=== PATIENT | female | born 1965 | race African-American/Black ===

== ENCOUNTER 2018-02-17 18:35 | Inpatient (IN) | payer OTHER ==
[~2018-02-17] VITALS: Ht 160 cm; Wt 133.8 kg
--- NOTE | 2018-02-17 18:47 | ER Report ---
History and Physical Time Seen By MD: 18:47 HPI/ROS CHIEF COMPLAINT: chills, trouble urinating HISTORY OF PRESENT ILLNESS: This is a 53 year old female. She has been traveling for a few weeks, just returned home. Has chills, nausea, dark urine and pain in bilateral flanks. Very shaky. Has diabetes and blood sugars are running high even though she is not eating much. Has subjective fevers with chills, severe shaking chills at times. Has no chest pain. Always a little short of breath with her asthma, but feels a little more short of breath. No increase in wheezing. Some lower abdominal pain. Normal bowel movement today. Generalized weakness. Allergies: Coded Allergies: Opioids - Morphine Analogues (Verified Allergy, Mild, TACHYCARDIA, 02/17/18) NSAIDS (Non-Steroidal Anti-Inflamma (Verified Allergy, Unknown, TACHYCARDIA, 02/17/18) Sulfa (Sulfonamide Antibiotics) (Verified Allergy, Unknown, 02/17/18) aspirin (Verified Allergy, Unknown, TACHYCARDIA, 02/17/18) egg (Verified Allergy, Unknown, 02/17/18) Home Meds Reported Medications Insulin Glargine (LANTUS) 100 Unit/Ml Soln, 57 UNIT SUBQ, ML 02/17/18 Albuterol Sulfate (VENTOLIN HFA) 18 Gm Inh, 1-2 PUFF INH 3-4XD, INH 02/17/18 Levothyroxine Sodium (LEVOTHYROXINE SODIUM) 100 Mcg Tablet, 137 MCG PO QDAY, TAB 02/17/18 Fluticasone/Salmeterol (ADVAIR 500-50 DISKUS) 1 Each Disk.w.dev, 1 EACH IH 02/17/18 Sertraline Hcl (ZOLOFT) 100 Mg Tablet, 150 MG PO QDAY, TAB 02/17/18 Omeprazole (OMEPRAZOLE) 40 Mg Capsule.dr, 40 MG PO BID, CAP 02/17/18 Reviewed Nurses Notes: Yes Constitutional Vital Sign - Last 24 Hours 02/17/18 02/17/18 02/17/18 02/17/18 18:50 18:50 19:00 19:05 Temp 97.7 Pulse 95 89 Resp 18 B/P (MAP) 156/87 (110) 156/87 160/78 (105) Pulse Ox 85 93 O2 Delivery Room Air 1202/17/18 02/17/18 02/17/18 19:31 19:35 20:05 20:30 Pulse 90 97 B/P (MAP) 120/72 (88) 141/87 (105) Pulse Ox 95 94 02/17/18 02/17/18 02/17/18 02/17/18 20:30 21:18 21:30 22:00 Pulse 92 91 B/P (MAP) 141/87 (105) 134/59 (84) 117/83 (94) Pulse Ox 94 88 92 02/17/18 02/17/18 22:05 22:20 Pulse 84 92 Pulse Ox 94 90 Physical Exam General Appearance: The patient is alert. No acute distress. Eyes: Pupils are equal, round. No pallor, injection or icterus. ENT: Mucous membranes are moist. Normal oral mucosa. Posterior oropharynx is normal. TMs normal bilaterally, has some seborrheic dermatitis in canals. Neck: Supple and non tender. No lymphadenopathy. Respiratory: Lungs are a little diminished on the left. No wheezing noted. Oxygen improved with 2 liters nasal canula. Cardiovascular: Regular rate and rhythm. No murmurs, gallops or rubs. Normal capillary refill. Gastrointestinal: Abdomen is soft, lower area discomfort, but no focal ten derness. Nondistended. No rebound or guarding. Normal active bowel sounds. Has no costovertebral angle tenderness with percussion. Neurological: Alert and oriented x3. Skin: Warm and dry. No rashes. Musculoskeletal: Extremities are nontender. No tenderness in palpation of the back and spine. DIFFERENTIAL DIAGNOSIS: After history and physical exam, differential diagnosis was considered for fever/chills with dark urine and bilateral flank pain, most suspicious for urinary tract infection, but other infectious process possible. Medical Decision Making Data Points Result Diagram: 02/17/18191702/17/181917 Laboratory Hematology Test 02/17/18 19:18 02/17/18 20:58 02/17/18 21:09 02/17/18 22:05 Red Blood Count 4.77 M/uL (4.17-5.56) Mean Corpuscular Volume 86.0 fL (80.0-96.0) Mean Corpuscular Hemoglobin 28.9 pg (26.0-33.0) Mean Corpuscular Hemoglobin Concent 33.7 g/dL (32.0-36.0) Red Cell Distribution Width 14.4 % (11.5-14.5) Mean Platelet Volume 9.2 fL (7.2-11.1) Neutrophils (%) (Auto) 86.2 % (39.4-72.5) Lymphocytes (%) (Auto) 6.8 % (17.6-49.6) Monocytes (%) (Auto) 5.4 % (4.1-12.4) Eosinophils (%) (Auto) 0.1 % (0.4-6.7) Basophils (%) (Auto) 1.5 % (0.3-1.4) Nucleated RBC Relative Count (auto) 0.2 /100WBC Neutrophils # (Auto) 7.7 K/uL (2.0-7.4) Lymphocytes # (Auto) 0.6 K/uL (1.3-3.6) Monocytes # (Auto) 0.5 K/uL (0.3-1.0) Eosinophils # (Auto) 0.0 K/uL (0.0-0.5) Basophils # (Auto) 0.1 K/uL (0.0-0.1) Nucleated RBC Absolute Count (auto) 0.01 K/uL Sodium Level 132 mmol/L (137-145) Potassium Level 4.1 mmol/L (3.5-5.0) Chloride Level 94 mmol/L (98-107) Carbon Dioxide Level 27 mmol/L (22-31) Blood Urea Nitrogen 7 mg/dl (7-18) Creatinine 1.00 mg/dl (0.52-1.04) Glomerular Filtration Rate Calc 58.2 Random Glucose 293 mg/dl (75-110) Calcium Level 9.1 mg/dl (8.4-10.2) Total Bilirubin 1.4 mg/dl (0.2-1.3) Aspartate Amino Transf (AST/SGOT) 58 U/L (0-35) Alanine Aminotransferase (ALT/SGPT) 56 U/L (0-56) Alkaline Phosphatase 114 U/L (0-126) Total Protein 7.9 g/dl (6.3-8.2) Albumin 3.8 g/dl (3.5-5.0) Amylase Level 48 U/L (0-110) Lipase 47 U/L (23-300) Lactate 2.8 mmol/L (0.7-2.1) Urine Color Yellow Urine Clarity Slightly-cloudy Urine pH 5.0 pH (4.8-9.5) Urine Specific [place] 1.017 Urine Protein 500 mg/dL (NEGATIVE) Urine Glucose (UA) 50 mg/dL (NEGATIVE) Urine Ketones 20 mg/dL (NEGATIVE) Urine Blood Moderate (NEGATIVE) Urine Nitrite Negative (NEGATIVE) Urine Bilirubin Negative (NEGATIVE) Urine Urobilinogen 2.0 mg/dL (0.2-1.9) Urine Leukocyte Esterase Negative (NEGATIVE) Urine RBC 1 /HPF (0-2/HPF) Urine WBC 6 /HPF (0-5/HPF) Urine Squamous Epithelial Cells Many /LPF (</=FEW) Urine Bacteria Many /HPF (NONE-FEW) Urine Mucus Few /HPF (NONE-FEW) Influenza Virus Type A (PCR) Negative (NEGATIVE) Influenza Virus Type B (PCR) Negative (NEGATIVE) Chemistry Test 02/17/18 19:18 02/17/18 20:58 02/17/18 21:09 02/17/18 22:05 White Blood Count 9.0 k/uL (4.5-11.0) Red Blood Count 4.77 M/uL (4.17-5.56) Hemoglobin 13.8 g/dL (12.0-16.0) Hematocrit 41.0 % (34.0-47.0) Mean Corpuscular Volume 86.0 fL (80.0-96.0) Mean Corpuscular Hemoglobin 28.9 pg (26.0-33.0) Mean Corpuscular Hemoglobin Concent 33.7 g/dL (32.0-36.0) Red Cell Distribution Width 14.4 % (11.5-14.5) Platelet Count 191 K/uL (150-450) Mean Platelet Volume 9.2 fL (7.2-11.1) Neutrophils (%) (Auto) 86.2 % (39.4-72.5) Lymphocytes (%) (Auto) 6.8 % (17.6-49.6) Monocytes (%) (Auto) 5.4 % (4.1-12.4) Eosinophils (%) (Auto) 0.1 % (0.4-6.7) Basophils (%) (Auto) 1.5 % (0.3-1.4) Nucleated RBC Relative Count (auto) 0.2 /100WBC Neutrophils # (Auto) 7.7 K/uL (2.0-7.4) Lymphocytes # (Auto) 0.6 K/uL (1.3-3.6) Monocytes # (Auto) 0.5 K/uL (0.3-1.0) Eosinophils # (Auto) 0.0 K/uL (0.0-0.5) Basophils # (Auto) 0.1 K/uL (0.0-0.1) Nucleated RBC Absolute Count (auto) 0.01 K/uL Glomerular Filtration Rate Calc 58.2 Calcium Level 9.1 mg/dl (8.4-10.2) Total Bilirubin 1.4 mg/dl (0.2-1.3) Aspartate Amino Transf (AST/SGOT) 58 U/L (0-35) Alanine Aminotransferase (ALT/SGPT) 56 U/L (0-56) Alkaline Phosphatase 114 U/L (0-126) Total Protein 7.9 g/dl (6.3-8.2) Albumin 3.8 g/dl (3.5-5.0) Amylase Level 48 U/L (0-110) Lipase 47 U/L (23-300) Lactate 2.8 mmol/L (0.7-2.1) Urine Color Yellow Urine Clarity Slightly-cloudy Urine pH 5.0 pH (4.8-9.5) Urine Specific [place] 1.017 Urine Protein 500 mg/dL (NEGATIVE) Urine Glucose (UA) 50 mg/dL (NEGATIVE) Urine Ketones 20 mg/dL (NEGATIVE) Urine Blood Moderate (NEGATIVE) Urine Nitrite Negative (NEGATIVE) Urine Bilirubin Negative (NEGATIVE) Urine Urobilinogen 2.0 mg/dL (0.2-1.9) Urine Leukocyte Esterase Negative (NEGATIVE) Urine RBC 1 /HPF (0-2/HPF) Urine WBC 6 /HPF (0-5/HPF) Urine Squamous Epithelial Cells Many /LPF (</=FEW) Urine Bacteria Many /HPF (NONE-FEW) Urine Mucus Few /HPF (NONE-FEW) Influenza Virus Type A (PCR) Negative (NEGATIVE) Influenza Virus Type B (PCR) Negative (NEGATIVE) Urinalysis Test 02/17/18 21:09 Urine Color Yellow Urine Clarity Slightly-cloudy Urine pH 5.0 pH (4.8-9.5) Urine Specific [place] 1.017 Urine Protein 500 mg/dL (NEGATIVE) Urine Glucose (UA) 50 mg/dL (NEGATIVE) Urine Ketones 20 mg/dL (NEGATIVE) Urine Blood Moderate (NEGATIVE) Urine Nitrite Negative (NEGATIVE) Urine Bilirubin Negative (NEGATIVE) Urine Urobilinogen 2.0 mg/dL (0.2-1.9) Urine Leukocyte Esterase Negative (NEGATIVE) Urine RBC 1 /HPF (0-2/HPF) Urine WBC 6 /HPF (0-5/HPF) Urine Squamous Epithelial Cells Many /LPF (</=FEW) Urine Bacteria Many /HPF (NONE-FEW) Urine Mucus Few /HPF (NONE-FEW) EKG/Imaging Imaging Examination: ACUTE ABDOMEN SERIES 3 VIEW Comparison: None. History: bilateral flank pain, lower abd, chills Findings: Left upper lung approximately 7 cm consolidative density. The right lung is clear. No pneumothorax or effusion. Cardiac and hilar contour size is within normal limits. No pneumoperitoneum. Bowel gas pattern is unremarkable. Small amount of stool in the colon. No suspicious soft tissue calcifications. Multifocal degenerative change throughout the osseous structures. IMPRESSION: 1. Left upper lung 7 cm consolidative density is most suggestive of a pneumonia although radiographic follow-up in 4-6 weeks to document resolution and exclude the presence of a mass is required. If there is a clinical suspicion for malignancy at this time, consider further characterization by chest CT with contrast. 2. Nonobstructive bowel gas pattern. No pneumoperitoneum. Report Dictated By: Sher Nino MD at 02/17/2018 8:20 PM ED Course/Re-evaluation Clinical Indication for ER IV: Hydration, IV Access ED Course Initial evaluation with concern for infectious process. Patient unable to give urine sample initially. Coughing with production of brownish sputum. Abdomen 3 view shows left upper lobe pneumonia. Blood cultures ordered and patient started on Ceftriaxone and Azithromycin. Discussed with Dr. Petersen who accepted the patient for admission. Decision to Disposition Date: Feb 17, 2018 Decision to Disposition Time: 21:00 Depart Departure Latest Vital Signs Vital Signs Date Time Temp Pulse Resp B/P (MAP) Pulse Ox O2 Delivery O2 Flow Rate FiO2 02/17/18 22:20 92 90 02/17/18 21:30 117/83 (94) 02/17/18 18:50 97.7 18 Room Air Impression: Primary Impression: Pneumonia Condition: Improved Disposition: Admitted from ER Referrals: SINDI ALCARAZ MD (PCP) Problem Qualifiers Primary Impression: Pneumonia Pneumonia type: due to unspecified organism Laterality: left Lung locat ion: upper lobe of lung Qualified Codes: J18.1 - Lobar pneumonia, unspecified organism LILY BENJAMIN MD Feb 17, 2018 18:47
[2018-02-17] MEDS ORDERED: NS(*) 0.9% 1000 ML BAG 1,000 ML IV ONE ×3 (19:15→23:00)
[2018-02-17] MEDS ORDERED: ONDANSETRON 4 MG/2 ML VIAL IVP ONE ×2 (19:15→20:35)
[2018-02-17] MEDS ORDERED: FLUT1DIS29 PO (19:20)
[2018-02-17] MEDS ORDERED: ALB18R INH (19:20)
[2018-02-17] MEDS ORDERED: OMEP40CA48 PO (19:20)
[2018-02-17] MEDS ORDERED: LANI SUBQ (19:20)
[2018-02-17] MEDS ORDERED: SERT-173 PO (19:20)
[2018-02-17] MEDS ORDERED: LEVO-3 PO (19:20)
[2018-02-17 19:30] LABS: PLATELET COUNT, AUTOMATED 191 K/uL (150-450)
--- NOTE | 2018-02-17 20:31 | RADIOLOGY IMAGING REPORT ---
FACILITY: [facility] [place] PATIENT NAME: Skyla Torres : 1965 MR: [id number] V: [id number] EXAM DATE: ORDERING PHYSICIAN: LILY BENJAMIN TECHNOLOGIST: Location: [facility] Patient: Skyla Torres : 1965 Visit/Account:[id number] Date of Sevice: 02/17/2018 Examination: ACUTE ABDOMEN SERIES 3 VIEW Comparison: None. History: bilateral flank pain, lower abd, chills Findings: Left upper lung approximately 7 cm consolidative density. The right lung is clear. No pne umothorax or effusion. Cardiac and hilar contour size is within normal limits. No pneumoperitoneum. Bowel gas pattern is unremarkable. Small amount of stool in the colon. No andressa picious soft tissue calcifications. Multifocal degenerative change throughout the osseous structures. IMPRESSION: 1. Left upper lung 7 cm consolidative density is most suggestive of a pneumonia although radiographi c follow-up in 4-6 weeks to document resolution and exclude the presence of a mass is required. If t here is a clinical suspicion for malignancy at this time, consider further characterization by chest CT with contrast. 2. Nonobstructive bowel gas pattern. No pneumoperitoneum. Report Dictated By: Sher Nino MD at 02/17/2018 8:20 PM Report E-Signed By: Sher Nino MD at 02/17/2018 8:27 PM WSN:[id number]
[2018-02-17] MEDS ORDERED: ACETAMINOPHEN 500 MG TAB PO ONE (20:35)
[2018-02-17] MEDS ORDERED: AZITHROMYCIN(*) 500 MG 500 MG in NS(*) 0.9% 250 ML BAG 250 ML IVPB ONE (20:40)
[2018-02-17] MEDS ORDERED: cefTRIAXone(*) 1 GM VIAL 1 GM in NS(*) 0.9% 100 ML ADDVANT BAG 100 ML IVPB ONE (20:40)
[2018-02-17 23:00] VITALS: BP 132/72
[2018-02-17] MEDS ORDERED: INFLUENZA VIRUS VAC 0.5ML SYR IM ONLY ONE (23:55)
[2018-02-18] MEDS ORDERED: PROMETHAZINE 25 MG/ML 1 ML AMP IVP PRN
--- NOTE | 2018-02-18 00:23 | History & Physical ---
History of Present Illness Chief Complaint Chest pain, fever, shortness of breath. History of Present Illness The patient is a 53 year old female with PMH significant for type II DM, YAMILET and asthma who presents with a several day history of L upper chest discomfort, fever and shortness of breath. The patient and her just returned from a trip to visit family in [place]. The patient notes she started having asthma like symptoms that did not respond to her inhalers. She then developed fever. Her symptoms and fever worsened and she presented to [facility] ER today for evaluation. In the ER, the patient was noted to be hypoxic with O2 sat of 85% on room air. CXR revealed a L upper lobe pneumonia. History Problems: (1) GERD (gastroesophageal reflux disease) Status: Chronic (2) Asthma Status: Chronic (3) Hypothyroidism Status: Chronic (4) Eczema Status: Chronic (5) Depression Status: Chronic (6) Type II diabetes mellitus Status: Chronic (7) Myositis Status: Chronic Home Meds Reported Medications Insulin Glargine (LANTUS) 100 Unit/Ml Soln, 57 UNIT SUBQ, ML 02/17/18 Albuterol Sulfate (VENTOLIN HFA) 18 Gm Inh, 1-2 PUFF INH 3-4XD, INH 02/17/18 Levothyroxine Sodium (LEVOTHYROXINE SODIUM) 100 Mcg Tablet, 137 MCG PO QDAY, TAB 02/17/18 Fluticasone/Salmeterol (ADVAIR 500-50 DISKUS) 1 Each Disk.w.dev, 1 EACH IH 02/17/18 Sertraline Hcl (ZOLOFT) 100 Mg Tablet, 150 MG PO QDAY, TAB 02/17/18 Omeprazole (OMEPRAZOLE) 40 Mg Capsule.dr, 40 MG PO BID, CAP 02/17/18 Allergies: Coded Allergies: Opioids - Morphine Analogues (Verified Allergy, Mild, TACHYCARDIA, 02/17/18) NSAIDS (Non-Steroidal Anti-Inflamma (Verified Allergy, Unknown, TACHYCARDIA, 02/17/18) Sulfa (Sulfonamide Antibiotics) (Verified Allergy, Unknown, 02/17/18) aspirin (Verified Allergy, Unknown, TACHYCARDIA, 02/17/18) egg (Verified Allergy, Unknown, 02/17/18) Patient History: FH: breast cancer MOTHER FH: heart disease Myositis BROTHER OR SISTER aunt Other Social/Family Hx The patient is and lives with her and 2 children. She is a "homeschooler". Hx Smoking: No Smoking Status: Never Smoker Exposure to Second Hand Smoke?: No Hx Alcohol Use: Yes Hx Substance Use Disorder: No History of IV Drug Use: No Review of Systems All Systems Reviewed/Normal: Yes, Except as Noted Constitutional: Fever Cardiovascular: Chest Pain Respiratory: Shortness of Breath Gastrointestinal: Nausea; No Vomiting Genitourinary: Other (Some low back pain after voiding. No burning with urination.) Musculoskeletal: Pain (Myositis, chronic.) Psychiatric: Depression Exam Vital Signs Vital Signs Date Time Temp Pulse Resp B/P (MAP) Pulse Ox O2 Delivery O2 Flow Rate FiO2 02/17/18 23:10 94 Nasal Cannula 2.0 02/17/18 23:00 100.2 76 18 132/72 (92) General Appearance: Alert, Awake, No Acute Distress, Afebrile Neuro: No Gross deficits Eyes: PERRLA Cardiovascular: Regular Rate and Rhythm Respiratory: Other (Decreased BS throughout without rales, rhonchi or wheezing.) GI: Other (Obese, soft.) : Other (No flank tenderness to percussion.) Extremities: Warm, Perfused, Other (No edema.) Integumentary: Other (Dry skin.) Psych: Alert & Oriented X3, Appropriate Mood & Affect Medical Decision Making Data Points Result Diagram: 02/17/18191702/17/181917 Item Value Date Time Urine Color Yellow 02/17/182108 Urine Clarity Slightly-cloudy 02/17/182108 Urine pH 5.0 pH 02/17/182108 Urine Specific [place] 1.017 02/17/182108 Urine Protein 500 mg/dL 02/17/182108 Urine Glucose (UA) 50 mg/dL H 02/17/182108 Urine Ketones 20 mg/dL H 02/17/182108 Urine Blood Moderate 02/17/182108 Urine Nitrite Negative 02/17/182108 Urine Bilirubin Negative 02/17/182108 Urine Urobilinogen 2.0 mg/dL 02/17/182108 Urine Leukocyte Esterase Negative 02/17/182108 Urine RBC 1 /HPF 02/17/182108 Urine WBC 6 /HPF 02/17/182108 Urine Squamous Epithelial Cells Many /LPF H 02/17/182108 Urine Bacteria Many /HPF H 02/17/182108 Urine Mucus Few /HPF 02/17/182108 Influenza Virus Type A (PCR) Negative 02/17/182204 Influenza Virus Type B (PCR) Negative 02/17/182204 Lactate 2.8 mmol/L H 02/17/182057 Calcium Level 9.1 mg/dl 02/17/181917 Total Bilirubin 1.4 mg/dl H 02/17/181917 Aspartate Amino Transf (AST/SGOT) 58 U/L H 02/17/181917 Alanine Aminotransferase (ALT/SGPT) 56 U/L 02/17/181917 Alkaline Phosphatase 114 U/L 02/17/181917 Total Protein 7.9 g/dl 02/17/181917 Albumin 3.8 g/dl 02/17/181917 Amylase Level 48 U/L 02/17/181917 Lipase 47 U/L 02/17/181917 Neutrophils (%) (Auto) 86.2 % H 02/17/181917 Lymphocytes (%) (Auto) 6.8 % L 02/17/181917 Monocytes (%) (Auto) 5.4 % 02/17/181917 Eosinophils (%) (Auto) 0.1 % L 02/17/181917 Basophils (%) (Auto) 1.5 % H 02/17/181917 Nucleated RBC Relative Count (auto) 0.2 /100WBC 02/17/181917 Neutrophils # (Auto) 7.7 K/uL H 02/17/181917 Lymphocytes # (Auto) 0.6 K/uL L 02/17/181917 Monocytes # (Auto) 0.5 K/uL 02/17/181917 Eosinophils # (Auto) 0.0 K/uL 02/17/181917 Basophils # (Auto) 0.1 K/uL 02/17/181917 Nucleated RBC Absolute Count (auto) 0.01 K/uL 02/17/181917 Urine and blood cultures pending. EKG / Imaging Imaging FACILITY: [facility] PATIENT NAME: Skyla Torres : 1965 MR: [id number] V: [id number] EXAM DATE: ORDERING PHYSICIAN: LILY BENJAMIN TECHNOLOGIST: Location: [facility] [place] Patient: Skyla Torres : 1965 Visit/Account:[id number] Date of Sevice: 02/17/2018 Examination: ACUTE ABDOMEN SERIES 3 VIEW Comparison: None. History: bilateral flank pain, lower abd, chills Findings: Left upper lung approximately 7 cm consolidative density. The right lung is clear. No pneumothorax or effusion. Cardiac and hilar contour size is within normal limits. No pneumoperitoneum. Bowel gas pattern is unremarkable. Small amount of stool in the colon. No suspicious soft tissue calcifications. Multifocal degenerative change throughout the osseous structures. IMPRESSION: 1. Left upper lung 7 cm consolidative density is most suggestive of a pneumonia although radiographic follow-up in 4-6 weeks to document resolution and exclude the presence of a mass is required. If there is a clinical suspicion for malignancy at this time, consider further characterization by chest CT with contrast. 2. Nonobstructive bowel gas pattern. No pneumoperitoneum. Report Dictated By: Sher Nino MD at 02/17/2018 8:20 PM Report E-Signed By: Sher Nino MD at 02/17/2018 8:27 PM WSN:[facility] Pre-Admit Course ED Medications Azithromycin, ceftriaxone, NS, Zofran. Assessment and Plan Problems: (1) Pneumonia Status: Acute Assessment & Plan: The patient has a L upper lobe pneumonia on CXR. She was started on ceftriaxone and azithromycin in the ER. Will continue. Albuterol nebulizer treatments ordered. Will continue Advair. Continue O2 to keep sats 90% or greater. Hydrate gently with NS. (2) Type II diabetes mellitus Status: Chronic Assessment & Plan: She usually takes her Lantus at noon but skipped today because she was not eating well. Will cover overnight with SSI. Check glucoses ACHS. Restart Lantus in am at lower dose until eating better. (3) Asthma Status: Chronic Assessment & Plan: Continue Advair and albuterol prn. (4) Hypothyroidism Status: Chronic Assessment & Plan: Continue levothyroxine 137mcg daily. (5) Depression Status: Chronic Assessment & Plan: Continue sertraline 150mg daily. (6) Myositis Status: Chronic Assessment & Plan: On no treatment currently. Symptoms are mild currently. (7) GERD (gastroesophageal reflux disease) Status: Chronic Assessment & Plan: She is on omeprazole 40mg bid at home. Will place on pantoprazole here. Time Spent on Plan of Care: < 30 min Copies to: CHA HOYT APRN ; Venous Thromboembolism Antithrombotics Is Pt On Any Antithrombotics?: Yes Exam Sepsis Risk: No Definite Risk Problem Qualifiers (1) Pneumonia: Pneumonia type: due to unspecified organism Laterality: left Lung location: upper lobe of lung Qualified Codes: J18.1 - Lobar pneumonia, unspecified organism SAUNDRA CHAUDHARY MD Feb 18, 2018 00:23
[2018-02-18] MEDS: INSULIN HUM LISPRO 100 UN/ML 3 ML VIAL SUBQ PRN ×5 (01:16→21:07)
[2018-02-18 04:00] VITALS: BP 136/76
[2018-02-18] MEDS: ACETAMINOPHEN 325 MG TAB PO PRN ×4 (04:12→22:51)
[2018-02-18 05:41] LABS: PLATELET COUNT, AUTOMATED 156 K/uL (150-450)
[2018-02-18] MEDS: SALMETEROL/FLUTIC 500/50 1 INH INH SCH ×2 (05:43→18:14)
[2018-02-18] MEDS: LEVOTHYROXINE SOD 0.137 MG TAB PO SCH (05:43)
[2018-02-18] MEDS: PANTOPRAZOLE SOD 40 MG TABEC PO SCH ×2 (08:25→20:55)
[2018-02-18] MEDS: ENOXAPARIN 40 MG/0.4ML SYR SC SCH (08:26)
[2018-02-18 08:42] VITALS: BP 110/68
--- NOTE | 2018-02-18 09:35 | Hospitalist Progress Note ---
Subjective Progress Notes Subjective This patient was admitted for pneumonia. She had no acute events overnight. Patient Complains of: Cardiovascular: No: Chest Pain Respiratory: No: Cough, Shortness of Breath Physical Exam Vital Signs Date Time Temp Pulse Resp B/P (MAP) Pulse Ox O2 Delivery O2 Flow Rate FiO2 02/18/18 08:44 84 02/18/18 08:42 100.2 88 24 110/68 (82) Nasal Cannula 2.0 Intake and Output 02/18/18 07:00 Intake Total 3550 ml Balance 3550 ml Intake Oral 1200 ml IV Total 2350 ml # Voids 3 Cardiovascular: Regular Rate and Rhythm Respiratory: Clear to Auscultation Result Diagram: 02/18/1851802/18/18518 Imaging Chest x-ray reviewed. Assessment and Plan Problems: (1) Pneumonia Status: Acute Assessment & Plan: She does have a low grade fever, but has not had any significant respiratory symptoms outside of her typical asthma. A chest x-ray showed a left upper lobe density. A CT scan has been ordered for further evaluation. She is on empiric treatment with ceftriaxone and azithromycin. (2) Type II diabetes mellitus Status: Chronic Assessment & Plan: She is on chronic treatment with Latnus. She is currently on sliding scale level #2. We will restart the Lantus at a lower dose this evening. (3) Asthma Status: Chronic Assessment & Plan: She is on chronic treatment with Advair and albuterol. (4) Hypothyroidism Status: Chronic Assessment & Plan: She is on chronic treatment with Synthroid. (5) Depression Status: Chronic Assessment & Plan: She is on chronic treatment with Zoloft. (6) Myositis Status: Chronic Assessment & Plan: On no treatment currently. Symptoms are mild currently. (7) GERD (gastroesophageal reflux disease) Status: Chronic Assessment & Plan: She is on chronic treatment with Prilosec. Exam Sepsis Risk: No Definite Risk Problem Qualifiers (1) Pneumonia: Pneumonia type: due to unspecified organism Laterality: left Lung location: upper lobe of lung Qualified Codes: J18.1 - Lobar pneumonia, unspecified organism SINDI SALAS DO Feb 18, 2018 09:35
[2018-02-18] MEDS ORDERED: IOPAMIDOL 76% 75 ML INFUS BTL 75 ML ONE (09:48)
[2018-02-18] MEDS: NS(*) 0.9% 1000 ML BAG 1,000 ML IV PRN ×2 (09:56→20:54)
[2018-02-18 09:57] VITALS: Ht 160 cm; Wt 133.8 kg
--- NOTE | 2018-02-18 11:04 | RADIOLOGY IMAGING REPORT ---
FACILITY: [facility] PATIENT NAME: Skyla Torres : 1965 MR: [id number] V: [id number] EXAM DATE: ORDERING PHYSICIAN: SINDI SALAS TECHNOLOGIST: Location: [facility] Patient: Skyla Torres : 1965 Visit/Account:[id number] Date of Sevice: 02/18/2018 CHEST W CONTRAST HISTORY: Pneumonia TECHNIQUE: CT imaging was obtained through the chest with intravenous contrast. One of the followin g dose optimization techniques was utilized in the performance of this exam: automated exposure contr ol; adjustment of the mA and/or kv according to patient size; or use of iterative reconstruction tech nique. Specific details can be referenced in the facility's radiology CT exam operational policy. CONTRAST: 75 cc of Isovue-370 COMPARISON: None. FINDINGS: CHEST: Lower neck: Negative. Vessels: Negative Heart and pericardium: Negative. Mediastinum/hilum/lymph nodes: Borderline-enlarged mediastinal and left hilar lymph nodes Lungs/pleura: Extensive left upper lobe consolidation. Mild left lower lobe, right lower lobe and ri ght upper lobe consolidation. No pneumothorax or pleural effusion. Upper abdomen: Hepatomegaly with diffuse steatosis, incompletely covered. 2.1 cm simple left renal cy st. Bones/soft tissues: Negative. IMPRESSION: 1. Multilobar bilateral airspace consolidation especially within the left upper lobe most consistent with pneumonia. Recommend continued radiographic surveillance to resolution. 2. Borderline enlarged mediastinal and left hilar lymph nodes, likely reactive. Report Dictated By: Rudy Berrios MD at 02/18/2018 10:54 AM Report E-Signed By: Rudy Berrios MD at 02/18/2018 11:01 AM WSN:[id number]
[2018-02-18 11:20] VITALS: BP 122/62
[2018-02-18 14:25] VITALS: BP 115/62
--- NOTE | 2018-02-18 14:38 | Antimicrobial Stewardship ---
Antimicrobial Stewardship Empiricly appropriate: Yes (CAP - Azithromycin and Ceftriaxone) Significant PMH: Yes (Asthma, DM) Support empiric regimen: Yes Comment Started on Azithromycin 500mg IV Q24h and Ceftriaxone 1g IV Q24H Approriate Cultures done: Yes (Blood Cx pending - NGTD) Renal/Hepatic dosing: Yes (Reviewed) Determine cumulative duration: Today is day 2 of therapy Determine standard duration: Treatment is 5-7 days Comment 53 yo F with a history of asthma, DM who presented to the ED with chills, difficulty urinating, dark urine, and flank pain. WBC wnl (+) left shift, tmax 100.3, Scr 1, Lactate 2.8-->1.3, influenzae A/B (-) UA - contaminated Chest Xray- ESDRAS pneumonia CT of the Chest - extensive multilobar pneumonia (ESDRAS, LLL, RLL, RUL) Pt started on Ceftriaxone 1g IV Q24H and Azithromycin 500mg IV Q24H, first doses on 02/17/18, today is day 2, continue treatment for 5-7 days. Switch to PO once afebrile for 24h and able to tolerate oral intake. Helena Blackburn, PharmD, [facility]LE[facility]URN Feb 18, 2018 14:38
[2018-02-18 19:17] VITALS: BP 124/75
[2018-02-18] MEDS: SERTRALINE HCL 50 MG TAB PO SCH (20:55)
[2018-02-18] MEDS: AZITHROMYCIN(*) 500 MG 500 MG in NS(*) 0.9% 250 ML BAG 250 ML IVPB SCH (20:55)
[2018-02-18] MEDS ORDERED: INSULIN GLARGINE 100 U/ML 3 ML PEN SUBQ SCH (21:00)
[2018-02-18] MEDS: cefTRIAXone 1 GM VIAL IVP SCH (22:26)
[2018-02-18 23:00] VITALS: BP 125/61
[2018-02-19] MEDS: ALBUTEROL 2.5 MG/3 ML NEB NEB PRN ×2 (00:18→06:17)
--- NOTE | 2018-02-19 01:04 | NUR ---
Pt reports SOB @ rest. Lung sounds diminished, tight in L lobes. Respiratory treatment given. Pt states "breathing easier". Oxygen @ 2L/NC, sats 95%. Continues with STRINGER, refusing anything stronger than Tylenol. Temperature decreased to 100.2 F. Resting in bed.
[2018-02-19 03:35] VITALS: BP 118/57
[2018-02-19] MEDS: SALMETEROL/FLUTIC 500/50 1 INH INH SCH ×2 (05:22→17:07)
[2018-02-19] MEDS: LEVOTHYROXINE SOD 0.137 MG TAB PO SCH (06:02)
[2018-02-19] MEDS: ACETAMINOPHEN 325 MG TAB PO PRN ×2 (06:02→15:47)
[2018-02-19 07:52] VITALS: BP 134/75
[2018-02-19] MEDS: INSULIN HUM LISPRO 100 UN/ML 3 ML VIAL SUBQ PRN ×4 (08:04→20:57)
[2018-02-19] MEDS: NS(*) 0.9% 1000 ML BAG 1,000 ML IV PRN ×2 (08:45→19:04)
[2018-02-19] MEDS ORDERED: methylPREDNIS SUCC 125 MG/2ML IVP ONE (09:23)
[2018-02-19] MEDS: PANTOPRAZOLE SOD 40 MG TABEC PO SCH ×2 (09:28→20:42)
[2018-02-19] MEDS: ENOXAPARIN 40 MG/0.4ML SYR SC SCH (09:28)
[2018-02-19] MEDS ORDERED: LEVALBUTEROL 1.25 MG/3 ML NEB NEB SCH (10:00)
[2018-02-19 10:03] LABS: PLATELET COUNT, AUTOMATED 159 K/uL (150-450)
--- NOTE | 2018-02-19 11:04 | Hospitalist Progress Note ---
Subjective Progress Notes Subjective She was admitted for pneumonia. She has had fevers of 102 overnight and has increased SOB. Patient Complains of: Cardiovascular: No: Chest Pain Respiratory: Shortness of Breath Physical Exam Vital Signs Date Time Temp Pulse Resp B/P (MAP) Pulse Ox O2 Delivery O2 Flow Rate FiO2 02/19/18 09:43 88 16 02/19/18 09:37 96 Nasal Cannula 1.0 02/19/18 07:52 99.9 134/75 (94) Intake and Output 02/19/18 07:00 Intake Total 4754 ml Balance 4754 ml Intake Oral 2100 ml IV Total 2654 ml # Voids 8 General Appearance: Alert, Awake, No Acute Distress, Afebrile Neuro: No Gross deficits Cardiovascular: Regular Rate and Rhythm Respiratory: No Respiratory Distress, Other (minimal air movement throughout the lungs) GI: Other (obese) Psych: Alert & Oriented X3, Appropriate Mood & Affect Result Diagram: 02/19/1856 02/19/1856 Assessment and Plan Problems: (1) Pneumonia Status: Acute Assessment & Plan: She does have a low grade fever, but has not had any significant respiratory symptoms outside of her typical asthma. A chest x-ray showed a left upper lobe density. A CT scan ordered showed pneumonia in the left upper lobe. She is on empiric treatment with ceftriaxone and azithromycin. We will add steroids today. We will increase nebulizers to scheduled instead of prn. (2) Type II diabetes mellitus Status: Chronic Assessment & Plan: She is on chronic treatment with Latnus. She is currently on sliding scale level #3. We will increase Lantus tonight. (3) Asthma Status: Chronic Assessment & Plan: She is on chronic treatment with Advair and albuterol. (4) Hypothyroidism Status: Chronic Assessment & Plan: She is on chronic treatment with Synthroid. (5) Depression Status: Chronic Assessment & Plan: She is on chronic treatment with Zoloft. (6) Myositis Status: Chronic Assessment & Plan: On no treatment currently. Symptoms are mild currently. (7) GERD (gastroesophageal reflux disease) Status: Chronic Assessment & Plan: She is on chronic treatment with Prilosec. Exam Sepsis Risk: No Definite Risk Problem Qualifiers (1) Pneumonia: Pneumonia type: due to unspecified organism Laterality: left Lung location: upper lobe of lung Qualified Codes: J18.1 - Lobar pneumonia, unspecified organism AXEL GOLDSTEIN [employer] ENGINE OPERATOR Feb 19, 2018 11:04
[2018-02-19 11:48] VITALS: BP 138/90
[2018-02-19] MEDS: LEVALBUTEROL 1.25 MG/3 ML NEB NEB SCH ×2 (13:43→17:07)
[2018-02-19 15:40] VITALS: BP 138/93
[2018-02-19] MEDS ORDERED: LEVALBUTEROL 1.25 MG/3 ML NEB NEB PRN (18:00)
[2018-02-19 19:18] VITALS: BP 104/67
[2018-02-19] MEDS ORDERED: LEVO137T23 PO (19:43)
[2018-02-19] MEDS: SERTRALINE HCL 50 MG TAB PO SCH (20:43)
[2018-02-19] MEDS: methylPREDNIS SUCC 125 MG/2ML IVP SCH (20:45)
[2018-02-19] MEDS: INSULIN GLARGINE 100 U/ML 3 ML PEN SUBQ SCH (20:56)
[2018-02-19] MEDS: AZITHROMYCIN(*) 500 MG 500 MG in NS(*) 0.9% 250 ML BAG 250 ML IVPB SCH (20:58)
[2018-02-19] MEDS ORDERED: INSULIN GLARGINE 100 U/ML 3 ML PEN SUBQ SCH (21:00)
[2018-02-19] MEDS: cefTRIAXone 1 GM VIAL IVP SCH (22:27)
[2018-02-20 03:28] VITALS: BP 119/88
[2018-02-20] MEDS: LEVOTHYROXINE SOD 0.137 MG TAB PO SCH (05:14)
[2018-02-20] MEDS: NS(*) 0.9% 1000 ML BAG 1,000 ML IV PRN (05:29)
[2018-02-20] MEDS: LEVALBUTEROL 1.25 MG/3 ML NEB NEB SCH ×4 (05:36→17:44)
[2018-02-20] MEDS: SALMETEROL/FLUTIC 500/50 1 INH INH SCH ×2 (05:36→17:44)
[2018-02-20 06:09] LABS: PLATELET COUNT, AUTOMATED 184 K/uL (150-450)
[2018-02-20 07:35] VITALS: BP 141/84
[2018-02-20] MEDS: INSULIN HUM LISPRO 100 UN/ML 3 ML VIAL SUBQ SCH ×3 (08:09→17:06)
[2018-02-20] MEDS: INSULIN HUM LISPRO 100 UN/ML 3 ML VIAL SUBQ PRN ×4 (08:10→20:55)
[2018-02-20] MEDS: ENOXAPARIN 40 MG/0.4ML SYR SC SCH (08:57)
[2018-02-20] MEDS: PANTOPRAZOLE SOD 40 MG TABEC PO SCH ×2 (08:58→20:54)
[2018-02-20] MEDS: methylPREDNIS SUCC 125 MG/2ML IVP SCH ×2 (08:59→20:54)
--- NOTE | 2018-02-20 10:50 | Hospitalist Progress Note ---
Subjective Progress Notes Subjective She was admitted with pneumonia. She reports much improvement in symptoms. Her fever has improved since yesterday afternoon. Patient Complains of: Cardiovascular: No: Chest Pain Respiratory: No: Shortness of Breath Physical Exam Vital Signs Date Time Temp Pulse Resp B/P (MAP) Pulse Ox O2 Delivery O2 Flow Rate FiO2 02/20/18 09:12 74 16 02/20/18 09:07 94 Nasal Cannula 1.5 02/20/18 07:35 97.8 141/84 (103) Intake and Output 02/20/18 07:00 Intake Total 4260 ml Balance 4260 ml Intake Oral 1000 ml IV Total 3260 ml # Voids 3 # Bowel Movements 2 General Appearance: Alert, Awake, No Acute Distress, Afebrile Neuro: No Gross deficits Cardiovascular: Regular Rate and Rhythm Respiratory: No Respiratory Distress, Other (diminished breath sounds, but improved from yesterday) GI: Soft and Non-Tender Psych: Alert & Oriented X3, Appropriate Mood & Affect Result Diagram: 02/20/1846 02/20/18545 Assessment and Plan Problems: (1) Pneumonia Status: Acute Assessment & Plan: She presented with a low grade fever, but has not had any significant respiratory symptoms outside of her typical asthma. A chest x-ray showed a left upper lobe density. A CT scan ordered showed pneumonia in the left upper lobe. She is on empiric treatment with ceftriaxone and azithromycin. She also has steroids and nebulizers. (2) Type II diabetes mellitus Status: Chronic Assessment & Plan: She is on chronic treatment with Lantus, continue. She is currently on sliding scale level #3 and will add 10units of Humalog TID. (3) Asthma Status: Chronic Assessment & Plan: She is on chronic treatment with Advair and albuterol. (4) Hypothyroidism Status: Chronic Assessment & Plan: She is on chronic treatment with Synthroid. (5) Depression Status: Chronic Assessment & Plan: She is on chronic treatment with Zoloft. (6) Myositis Status: Chronic Assessment & Plan: On no treatment currently. Symptoms are mild currently. (7) GERD (gastroesophageal reflux disease) Status: Chronic Assessment & Plan: She is on chronic treatment with Prilosec. Exam Sepsis Risk: No Definite Risk Problem Qualifiers (1) Pneumonia: Pneumonia type: due to unspecified organism Laterality: left Lung location: upper lobe of lung Qualified Codes: J18.1 - Lobar pneumonia, unspecified organism AXEL GOLDSTEIN FLOWER CUTTER Feb 20, 2018 10:50
[2018-02-20 12:32] VITALS: BP 124/74
[2018-02-20 14:46] VITALS: BP 128/70
[2018-02-20 18:59] VITALS: BP 127/74
[2018-02-20] MEDS: INSULIN GLARGINE 100 U/ML 3 ML PEN SUBQ SCH (20:54)
[2018-02-20] MEDS: SERTRALINE HCL 50 MG TAB PO SCH (20:54)
[2018-02-20] MEDS: AZITHROMYCIN(*) 500 MG 500 MG in NS(*) 0.9% 250 ML BAG 250 ML IVPB SCH (20:55)
[2018-02-20] MEDS: cefTRIAXone 1 GM VIAL IVP SCH (22:03)
[2018-02-20 22:54] VITALS: BP 129/79
[2018-02-21] MEDS: LEVALBUTEROL 1.25 MG/3 ML NEB NEB SCH ×2 (05:00→10:44)
[2018-02-21] MEDS: SALMETEROL/FLUTIC 500/50 1 INH INH SCH (05:00)
[2018-02-21] MEDS: LEVOTHYROXINE SOD 0.137 MG TAB PO SCH (05:30)
[2018-02-21 05:31] VITALS: BP 132/67
[2018-02-21] MEDS ORDERED: predniSONE 20 MG TAB PO ONE (08:10)
[2018-02-21] MEDS: INSULIN HUM LISPRO 100 UN/ML 3 ML VIAL SUBQ PRN (08:27)
[2018-02-21] MEDS: INSULIN HUM LISPRO 100 UN/ML 3 ML VIAL SUBQ SCH (08:27)
[2018-02-21 08:30] VITALS: BP 133/92
[2018-02-21] MEDS: ENOXAPARIN 40 MG/0.4ML SYR SC SCH (09:02)
[2018-02-21] MEDS: PANTOPRAZOLE SOD 40 MG TABEC PO SCH (09:02)
[2018-02-21] MEDS ORDERED: AZIT-1 PO (10:15)
[2018-02-21] MEDS ORDERED: CEFD300C35 PO (10:15)
[2018-02-21] MEDS ORDERED: INSU100I28 SQ (10:15)
[2018-02-21] MEDS ORDERED: PRED20TA6 PO (10:15)
[2018-02-21] MEDS ORDERED: NEED-931 MC (10:17)
--- NOTE | 2018-02-21 10:23 | Hospitalist Depart ---
Discharge Summary Reason for Hosp/Final Diag: (1) Pneumonia Status: Acute Hospital Course & Plan: She presented with a low grade fever, but has not had any significant respiratory symptoms outside of her typical asthma. A chest x- ray showed a left upper lobe density. A CT scan ordered showed pneumonia in the left upper lobe. She was placed on empiric treatment with ceftriaxone and azithromycin. She will be switched to Omnicef and Azithromycin. She also has steroids and nebulizers. She will follow up with PCP in 1-2 weeks. (2) Type II diabetes mellitus Status: Chronic Hospital Course & Plan: She is on chronic treatment with Lantus, continue. She is currently on sliding scale level #3 and will add 10units of Humalog TID. Her blood glucose levels have been elevated even prior to admission with steroids. She will be placed on Humalog to use AC/HS. She will follow up with PCP in 1-2 weeks about glucose levels. (3) Asthma Status: Chronic Hospital Course & Plan: She is on chronic treatment with Advair and albuterol. (4) Hypothyroidism Status: Chronic Hospital Course & Plan: She is on chronic treatment with Synthroid. (5) Depression Status: Chronic Hospital Course & Plan: She is on chronic treatment with Zoloft. (6) Myositis Status: Chronic Hospital Course & Plan: On no treatment currently. Symptoms are mild currently. (7) GERD (gastroesophageal reflux disease) Status: Chronic Hospital Course & Plan: She is on chronic treatment with Prilosec. Departure Latest Vital Signs Vital Signs 02/21/18 02/21/18 02/21/18 05:31 08:30 10:09 Temp 97.7 Pulse 71 Resp 14 B/P (MAP) 133/92 (106) Pulse Ox 87 O2 Delivery Room Air O2 Flow Rate 0.5 Weight (Pounds): 295 Result Diagram: 02/20/1854502/20/18545 Condition: Improved Discharge: Home, Self Care Discharge Instructions Home Meds Active Scripts [place], Insulin Disposable (PEN NEEDLES) 1 Each Dis.needle, EACH [facility], #1 Prov:AXEL GOLDSTEIN FEATURE WRITER 02/21/18 Insulin Lispro 100 Un/Ml Pen (HUMALOG 3 ML PEN) 100 Unit/1 Ml Insuln.pen, 100 UNIT SQ ACHS, #10 DIS.SYR For blood glucose 150-200 give 3 units, for 201-250 give 6 units, for 251-300 give 9 units, for 301-350 give 12 units, for glucose over 351 give 15 units. Prov:AXEL GOLDSTEIN [facility] 02/21/18 Prednisone (PREDNISONE) 20 Mg Tablet, 40 MG PO QDAY, #4 TAB Prov:AXEL GOLDSTEIN [facility] 02/21/18 Cefdinir 300 Mg Cap (OMNICEF 300 MG CAP (OR EQUIV)) 300 Mg Capsule, 300 MG PO BID for 4 Days, #8 CAPSULE Prov:AXEL GOLDSTEIN [facility] 02/21/18 Azithromycin (ZITHROMAX) 250 Mg Tablet, 2 TAB PO QDAY, #2 TAB Prov:AXEL GOLDSTEIN [facility] 02/21/18 Reported Medications Levothyroxine Sodium (LEVOTHYROXINE SODIUM) 137 Mcg Tablet, 137 MCG PO QAM 02/19/18 Insulin Glargine (LANTUS) 100 Unit/Ml Soln, 57 UNIT SUBQ, ML 02/17/18 Albuterol Sulfate (VENTOLIN HFA) 18 Gm Inh, 1-2 PUFF INH 3-4XD, INH 02/17/18 Fluticasone/Salmeterol (ADVAIR 500-50 DISKUS) 1 Each Disk.w.dev, 1 INHALATION PO BID 02/17/18 Sertraline Hcl (ZOLOFT) 100 Mg Tablet, 150 MG PO QDAY, TAB 02/17/18 Omeprazole (OMEPRAZOLE) 40 Mg Capsule.dr, 40 MG PO QDAY, CAP 02/17/18 Discontinued Reported Medications Levothyroxine Sodium (LEVOTHYROXINE SODIUM) 100 Mcg Tablet, 137 MCG PO QDAY, TAB 02/17/18 Diet: Diabetic Activity: As Tolerated Special Instructions: Take medications as prescribed. Follow up with Primary Care provider in 1-2 weeks regarding pneumnoia and Diabetes. Copies to: [facility] ; Venous Thromboembolism Antithrombotics Is Pt On Any Antithrombotics?: Yes Problem Qualifiers (1) Pneumonia: Pneumonia type: due to unspecified organism Laterality: left Lung location: upper lobe of lung Qualified Codes: J18.1 - Lobar pneumonia, unspecified organism AXEL GOLDSTEIN [facility] Feb 21, 2018 10:23
== END 2018-02-21 11:40 | disposition home or self-care (01) | DRG 195 ==
LOC: ER 19:06 → MED 22:26
PROVIDERS: ADMIT Internal Medicine; ATTEND Internal Medicine
DX: J18.1 Lobar pneumonia, unspecified organism (principal); E11.9 Type 2 diabetes mellitus without complications; G47.33 Obstructive sleep apnea (adult) (pediatric); K21.9 Gastro-esophageal reflux disease without esophagitis; M60.9 Myositis, unspecified; J45.909 Unspecified asthma, uncomplicated; E03.9 Hypothyroidism, unspecified; L30.9 Dermatitis, unspecified; F32.9 Major depressive disorder, single episode, unspecified; Z88.5 Allergy status to narcotic agent; Z88.2 Allergy status to sulfonamides; Z88.8 Allergy status to other drugs, medicaments and biological substances; Z79.4 Long term (current) use of insulin
CPT/HCPCS: 36415; 36416; 71260; 74022; 81001; 82040; 82150; 82247; 82310; 82374; 82435; 82565; 82947; 82948; 83605; 83690; 84075; 84132; 84155; 84295; 84450; 84460; 84520; 85025; 87040; 87088; 87502; 94640; 96361; 96365; 96367; 96375; 96376; 99285; J0456; J0696; J1650; J1815; J2405; J2550; J2930; J7030; J7050; J7512; J7613; Q9967

== ENCOUNTER → 2018-03-18 | Outpatient (REF) | payer OTHER ==
[2018-02-18 09:57] VITALS: BMI 52.2
[~2018-03-18] MED LIST: ALB18R INH; AZIT-1 PO; CEFD300C35 PO; FLUT1DIS29 PO; INSU100I28 SQ; LANI SUBQ; LEVO-3 PO; LEVO137T23 PO; NEED-931 MC; OMEP40CA48 PO; PRED20TA6 PO; SERT-173 PO
[2018-03-18 18:27] LABS: PLATELET COUNT, AUTOMATED 300 K/uL (150-450)
== END ==
PROVIDERS: ATTEND Nurse Practitioner Family
DX: R09.02 Hypoxemia (principal); R06.00 Dyspnea, unspecified
CPT/HCPCS: 82040; 82247; 82310; 82374; 82435; 82565; 82947; 84075; 84132; 84155; 84295; 84450; 84460; 84484; 84520; 85025